=== PATIENT | female | born 1960 | race Caucasian/White ===

== ENCOUNTER 2024-12-01 19:13 | Inpatient (IN) | payer MEDICARE, MEDICAID ==
[~2024-12-01] VITALS: Ht 177.8 cm; Wt 97.0 kg
[2024-12-01] MEDS: normal saline 1000ML IV soln IVB ONE (19:33)
--- NOTE | 2024-12-01 19:58 | Physician Documentation ---
History of Present Illness ~ Chief Complaint: Urinary Symptoms Stated Complaint: NEPHRITIS Time Seen by MD: 19:20 Mode of Arrival: EMS, Stretcher HPI History, review of systems, physical examination are limited due to patient's developmental delay. This is a nonverbal autistic 64-year-old female transferred to us from the outside facility for higher level of care and neurology consultation. History is obtained from record review. It appears the patient had presented to the outside facility with the caregivers reporting that she is more weak than normal and had two falls in the last several days. HPI per Dr. David Tineo states this is a 64-year-old female with a history of autistic disorder, nearly nonverbal at baseline with a hypotension, hypothyroidism, and developmental delay. She has a lethargy and weakness over the last two days. She had two falls but reportedly no head strike. Not complaining of any known pain. It appears that the patient takes atorvastatin, benztropine, fluvoxamine, gabapentin, haloperidol, Invega Sustenna, levothyroxine 75 mcg, loratadine, melatonin, metformin, MiraLax and multivitamins. Laboratory studies at outside facility showed leukocytosis of 21.9, normal hemoglobin of 12.7, 88% neutrophils, normal platelets at 180. COVID and influenza were negative. Metabolic panel was notable for elevated BUN at 33, elevated creatinine at 1.44, normal electrolytes, normal bicarb. Troponin was negative. BNP was slightly elevated 196. Coagulation panel was unremarkable. Urinalysis is positive for UTI, bacteria present, leukocyte esterase the present, hematuria is also noted. Her lactic acid was elevated at 2.4, improved with fluids. TSH was normal at 1.24. Left hip x-ray was obtained and shows intact hip and pelvis. Right shoulder x- ray was obtained showing a intact right shoulder. Chest x-ray showed no acute cardiopulmonary disease. CT head showed more motion artifact but no acute intracranial process. CT of the chest, abdomen and pelvis was ordered and it found left-sided hydronephrosis, 3 mm stone. She received broad-spectrum antibiotic coverage. Because of the obstructive pyelonephritis she was transferred to our facility for urology consultation. Medication Reconciliation Allergies: Coded Allergies: No Known Allergies (Unverified , 12/01/24) Past Medical History Smoking Status: Never smoker Review of Systems ROS Limited as above Physical Exam Vital Signs: Temperature: 99.3, Heart Rate: 108, Respiratory Rate: 16, BP: 136/76, Pulse Oximetry: 94, Weight: 97.000 Oxygen Flow Rate: 0 Physical Exam GENERAL: Awake, baseline mentation, no apparent distress, non-toxic appearing, nonverbal, does not not follows commands appropriately. Examined in bed 3. HEENT: Atraumatic, normocephalic, pupils equal, extraocular muscles intact, sclerae anicteric, mucus membranes moist, oropharynx is clear, no stridor. NECK: supple, full active range of motion, trachea midline, no thyromegaly, no lymphadenopathy, no JVD. CARDIOVASCULAR: Tachycardic and regular rate/rhythm, no murmurs/gallops/rubs, Pulses are 2+ in all extremities and symmetric. Capillary refill less than 2 seconds. PULMONARY: Nonlabored, good air movement ,no respiratory distress, speaking in full sentences, clear to auscultation bilaterally, no wheezing, no ronchi, no rales, no accessory muscle use. GASTROINTESTINAL: Soft, non-tender, non-distended, normal active bowel sounds, no organomegaly, no pulsatile masses, left CVA tenderness. NEUROLOGIC: Lucid with baseline mental status. Normal facial symmetry. Moves all extremities symmetrically and with purpose. No truncal ataxia. Speech is fluid without evidence of dysarthria or aphasia, no focal deficits appreciated. MUSCULOSKELETAL: There is full range of motion of all extremities. There is no joint pain or joint swelling or joint erythema. There is no muscle pain or tenderness or swelling. EXTREMITIES: warm, well-perfused, no cyanosis, no clubbing, no edema, no acute deformities. Skin: warm, dry, no rashes or lesions, no jaundice, no petechiae orpurpura. No ecchymosis. PSYCHIATRIC: Unable to assess Progress Results/Orders Results/Orders Orders - AVERY HAIDER DO Cbc/Diff (12/01/24 19:21) ESR (12/01/24 19:21) C-Reactive Protein (12/01/24 19:21) Culture Blood (12/01/24 19:21) Urinalysis, Cult If Indicated (12/01/24 19:21) MG (12/01/24 19:21) Monitor (12/01/24 19:21) Saline Lock (12/01/24 19:21) CMP (12/01/24 19:21) Lacticsepsis (12/01/24 19:21) Straight Cath For Urine Sample (12/01/24 19:21) Procalcitonin (12/01/24 19:21) Completed Orders - AVERY HAIDER DO Normal Saline 1000ml (0.9% Sodium Chlori (12/01/24 19:25) Medications Received in ER Medications (Trade) Dose Ordered Sig/Inder Route PRN Reason Start Time Stop Time Status Last Admin Dose Admin (0.9% sodium chloride (NS) 1000ml IV soln) 1,000 ml ONCE ONCE IVB 12/01/24 19:25 12/01/24 19:26 DC 12/01/24 19:33 1,000 ML Vital Signs 12/01/24 12/01/24 12/01/24 19:15 19:19 19:20 Temp 99.3 Pulse 111 108 Resp 18 16 16 B/P (MAP) 136/76 136/76 (96) Pulse Ox 99 94 O2 Flow Rate 0 0 Medical Decision Making Findings Facility Status: ED Holds, RME process The plan was discussed with the patient, who demonstrates clear understanding of the plan and is in agreement with the plan unless otherwise noted in the chart. All questions have been answered, all concerns were addressed unless otherwise documented. I was available throughout their ED stay for frequent reassessment and questions. Differential Diagnoses (considered and possible or likely): [Urinary tract infection, pyelitis, pyelonephritis, kidney stone, obstructive uropathy, infected stone, dehydration, electrolyte derangement, sepsis] ??Differential Diagnoses (considered and unlikely, not requiring evaluation currently): [Traumatic etiology has been ruled out at the outside facility] MDM Data Please see HPI for the following: Independent Historians and external Records Review. Historian: Record review Independent Historians: ?[EMS] Medication Management: [Reviewed medication list] Social History and determinants: [Reviewed] Please see the body of the note for the following: Any independent interpretations of ECG, imaging studies. All vitals signs/haemodynamics, ordered tests were independently reviewed and interpreted by myself. Nursing triage complaint and vitals reviewed, additional nursing notes were reviewed as available and I agree unless otherwise noted or documented in contradiction in the chart Vital Signs: Independently reviewed Labs: Independently interpreted Imaging: Independently interpreted Old Medical Records: Independently reviewed, see HPI for relevant summary and information Pulse Oximetry: [96%] interpreted as [normal on room air] by me [Manufacture Specialist: Tachycardic Rate, Regular rhythm, no ectopy, sinus tachycardic. reviewed and interpreted by me] Additionally notably showing: [Persistently tachycardic despite fluids.] Tests considered but not ordered include: [Repeat imaging does not appear to be necessary] Social Determinants of Health Impact: Patient was evaluated in [facility] [place] to healthcare due to below par ratio of patient to medical providers. [] Comorbid Conditions Impacting Present Evaluation and Care/Treatment: [Severe autism] Management Discussions with other Healthcare Providers: [Hospitalist regarding admission] Treatment and Disposition Medication Management (Given or considered): [The patient already received antibiotics]. See EMR for details Consideration for Hospitalization/Escalation/Deescalation of Care: Admission for observation has been considered, appears to be necessary for further management of her infected stone ?ED Course:?[No clinical deterioration] ?Shared decision making:?[] Code status:?FULL Please see the full Electronic Medical Record for full details of nursing documentation, medications list, other records of complete past medical history and conditions, vital signs, laboratory studies, and any radiologic study interpretations by radiologists. Portions of this note were completed using [email or web address] dictation software and as a result there may exist minor errors in spelling. I have reviewed elements of past family and social history and agree as included in note. Departure Disposition: 09 ADMITTED INPATIENT Impression: Primary Impression: Acute pyelonephritis Additional Impressions: Obstruction of urinary tract Left renal stone Sepsis Condition: Stable Referrals: NO PRIMARY CARE PROVIDER (PCP) Education Educated: Other Educated regarding: diagnosis, treatment, prognosis Signature Scribe Signature: No scribe Attestation: Date: Dec 01, 2024 Time: 20:07 This note accurately reflects clinical decisions, work performed by myself, DO VITALY Miguel NICHOLAS M DO Dec 01, 2024 19:58
[2024-12-01 20:05] LABS: MEAN PLATELET VOLUME 7.7 FL (7.4-10.4); RED CELL DISTRIBUTION WIDTH 13.3 % (11.5-14.5)
[2024-12-01 20:23] LABS: CREATININE 1.44 MG/DL (0.40-0.90); TOTAL CARBON DIOXIDE 21.7 MMOL/L (24-32); eCRCL 43 ML/MIN; eGFR 37 ML/MIN
[2024-12-01] MEDS ORDERED: potassium Cl 20 mEq SR tablet PO PRN (21:05)
[2024-12-01] MEDS ORDERED: potassium Cl 40MEQ/1/2NS 520ml 520 ML IV PRN (21:05)
[2024-12-01] MEDS ORDERED: magnesium sulf-water 2g/50mL 50 ML IV PRN (21:05)
[2024-12-01] MEDS ORDERED: HYDROcodone/acetaminophen 5mg/325mg tablet PO PRN (21:05)
[2024-12-01] MEDS ORDERED: magnesium sulf-water 4G/100mL 100 ML IV PRN (21:05)
[2024-12-01] MEDS ORDERED: HYDROcodone/acetaminophen 10/325mg tab PO PRN (21:05)
[2024-12-01] MEDS ORDERED: mag hydrox/Alum hydrox/simeth 30ml oral suspension PO PRN (21:05)
[2024-12-01] MEDS ORDERED: morphine 4 MG/ML inj SYRINge IV PRN ×2 (21:05)
[2024-12-01] MEDS ORDERED: magnesium Cl slow-release 64mg tablet PO PRN (21:05)
[2024-12-01] MEDS ORDERED: ondansetron/PF 4mg/2ml inj IV PRN (21:05)
[2024-12-01] MEDS ORDERED: magnesium hydroxide 30ml (MOM) UD suspension PO PRN (21:05)
--- NOTE | 2024-12-01 21:12 | HISTORY AND PHYSICAL-Residence ---
History & Physical Providers to Resident Creating Document: DARNELL CRUZ RES ~ History of Present Illness Reason for Admit\Complaint: PYELONEPHRITIS History of Present Illness This is a nonverbal autistic 64-year-old female transferred from [facility] . Patient is nearly nonverbal at baseline with past medical history of hypertension, hypothyroidism, diabetes, hypercholesterolemia, depression, dementia, tremors, developmental delay. All the information that I got was from the caregiver and medical records from [facility]. According to the caregiver, patient had a ground level mechanical fall yesterday, was taken to the hospital where CT head, shoulder, pelvis hip showed no abnormalities or fractures. Left hip x-ray was obtained and shows intact hip and pelvis. Right shoulder x-ray was obtained showing a intact right shoulder. Patient's caregiver reports that she was having generalized weakness since yesterday and was complaining of back pain. She reports having no complaints of shortness of breath, chest pain, headache, nausea, vomiting, abdominal pain, burning micturition. CT scan abdomen showed nonobstructing right kidney lower pole calyceal stone measuring 3 mm. There is mild left hydronephrosis but there is no left kidney stone in the kidney. The left ureter distally shows a small stone measuring 3 mm at the ureterovesical junction. There is heterogeneous enhancement of the left kidney cortex suggesting pyelonephritis. Allergies: Coded Allergies: No Known Allergies (Unverified , 12/01/24) Past Medical History Past Medical History Autism Hypertension Diabetes mellitus type 2 Hyperlipidemia Depression Dementia Hypothyroidism Tremors Past Surgical History Surgical History Comment No significant surgical history as per the building code administrator. Past Social History Social History Comment As per the building code administrator the patient did not smoke not drink alcohol. Patient lives at home along with some assistance present 24 hours. Patient independent with most activities of daily living. Patient is nonverbal. PCP at [facility] purnima. ROS ROS Constitutional: Generalized weakness Eyes: No pain, erythema, discharge, blurring of vision ENT: No sore throat, epistaxis, tinnitus Cardiovascular:No chest pain, palpitations, syncope, lower extremity edema, paroxysmal nocturnal dyspnea Respiratory: No Shortness of breath and cough, No hemoptysis. Gastrointestinal: No nausea, vomiting. No Abdominal pain, constipation,diarrhea. Normal appetite. No hematemesis or melena. Genitourinary: No symptoms reported. Musculoskeletal: No Swelling, pain in bilateral lower legs. Integumentary: No change in skin, hair, nails. No swelling, bruising, abrasions Neurologic: No weakness,No headache, neck pain, numbness or tingling of the extremities, Endocrine: No fatigue, no weakness. polydipsia, polyuria, change in appetite, heat or cold intolerance, sweating, dry skin Hematological: No bleeding, petechiae, bruising Allergies: No asthma or urticaria Exam Vitals: Vital Signs Date Time Temp Pulse Resp B/P (MAP) Pulse Ox O2 Delivery O2 Flow Rate FiO2 12/01/24 19:20 16 12/01/24 19:19 108 94 0 12/01/24 19:15 99.3 General: Patient sleeping, not awake. HEENT: Atraumatic, normocephalic, EOMI, anicteric sclera ; pink conjunctiva Neck: Trachea midline. Supple, full range of motion, no JVD Cardiac: Regular rhythm, regular rate with no murmurs all over the precordium. Respiratory: Equal breath sounds bilaterally, no tachypnea, no wheezing ,rub or rales, Chest wall is symmetric and without deformity. Gastrointestinal: Abdomen symmetric, non-distended, soft, non-tender, normal bowel sounds x4 quadrant, normoactive, no hepatosplenomegaly Musculoskeletal: , No pedal edema, no cyanosis Neurological: Unable to perform examination. Skin: Warm and dry Diagnostic Data Last Recorded Lab Results: 12/02/24 0515 12/02/24 0515 Advance Care Planning Advanced Care plannin - 30 Minutes (Full code) Additional Plan Nonobstructing right kidney stone Hydronephrosis Sepsis due to underlying acute pyelonephritis Patient meeting SIRS criteria Pulse-111, WBC-21.5 Lactic acid elevated, CRP-elevated, ESR-elevated, procalcitonin normal Urinalysis from outside facility is positive for UTI, bacteria , leukocyte esterase , hematuria. CT scan at [facility] showed- nonobstructing right kidney lower pole calyceal stone measuring 3 mm. There is mild left hydronephrosis due to a 3mm calculus at the left ureterovesical junction . There is heterogeneous enhancement of the left kidney cortex suggesting pyelonephritis. Patient on fluids NS 100 cc/hour. Patient started on Zosyn. Urology consulted. Waiting recommendations. TIFFANY- Creatinine-1.44, BUN-28 Patient on fluids NS. Follow-up with urine lytes. Hypertension- Patient currently recording stable blood pressures. Continue home meds once med reconciliation is done. Diabetes mellitus- [id number]-5.2 Patient on hyperglycemia hypoglycemia protocol. Lantus 10 units, low-dose protocol. Hypothyroidism- Continue levothyroxine 75 mcg. Tremors- Continue Patient on benztropine 2 mg. Code status: Full code DVT prophylaxis: SubQ heparin Pain management: Morphine 1 mg/2 mg p.r.n. Diet/nutrition: Heart healthy diet Prognosis: Guarded Darnell Cruz PGY-1 Date of Service: Dec 01, 2024 Billing Provider: JOHNATHON PANIAGUA MD Addendum Attestation I agree with the residents assessment and plan as below: 64 year old female with autism admitted after a fall found to have a renal stone with hydronephrosis Plan: consult urology continue zosyn pain control CCT 50 min using HIPPA compliant A/V technology DARNELL CRUZ, RES Dec 01, 2024 21:12 JOHNATHON PANIAGUA MD Dec 02, 2024 19:47
[2024-12-01] MEDS: normal saline 1000ml 1,000 ML IV SCH (21:42)
[2024-12-01 22:00] VITALS: BP 122/68; PULSE 114; RESP 20; TEMP 100.6; O2SAT 96
[2024-12-01] MEDS ORDERED: glucagon, human recombinant 1mg kit SUBCUT PRN (22:25)
[2024-12-01] MEDS ORDERED: dextrose 50%-water 50ml dispensing syringe IV PRN ×2 (22:25)
[2024-12-01] MEDS ORDERED: DEXTROSE 15 GM of carb/4 tabs (each vial/BOTTLE has 4 tablets) PO PRN ×2 (22:25)
[2024-12-01] MEDS ORDERED: CHOL500050 PO (22:57)
[2024-12-01] MEDS ORDERED: ATOR40TA PO (22:58)
[2024-12-01] MEDS ORDERED: BENZ2TAB65 PO (22:59)
[2024-12-01] MEDS ORDERED: DONE-55 PO (23:00)
[2024-12-01] MEDS ORDERED: GABA-1405 PO (23:16)
[2024-12-01] MEDS ORDERED: LEVO75TA PO (23:20)
[2024-12-01] MEDS ORDERED: LISI10TA27 PO (23:21)
[2024-12-01] MEDS ORDERED: LORA10TA7 PO (23:23)
[2024-12-01] MEDS ORDERED: MELA3CAP2 PO (23:23)
[2024-12-01] MEDS ORDERED: METF-436 PO (23:24)
[2024-12-01] MEDS ORDERED: PROP40TA72 PO (23:36)
[2024-12-02] VITALS (8 sets, daily range): BP systolic 132–152; BP diastolic 63–93; PULSE 92–125; RESP 16–22; TEMP 97–102.6; O2SAT 95–98
[2024-12-02] MEDS: piperacillin/tazo 3.375gm/50ml 50 ML IV ONE (01:14)
[2024-12-02] MEDS: piperacillin/tazo 3.375gm/50ml 50 ML IV SCH (01:17)
[2024-12-02] MEDS ORDERED: TOPI200T68 PO (03:52)
[2024-12-02] MEDS ORDERED: TRAZ150T78 PO (03:54)
[2024-12-02] MEDS ORDERED: VENL150C58 PO (03:54)
[2024-12-02 06:13] LABS: MEAN PLATELET VOLUME 8.2 FL (7.4-10.4); RED CELL DISTRIBUTION WIDTH 13.3 % (11.5-14.5)
[2024-12-02 06:27] LABS: CREATININE 1.30 MG/DL (0.40-0.90); TOTAL CARBON DIOXIDE 21.2 MMOL/L (24-32); eCRCL 48 ML/MIN; eGFR 41 ML/MIN
[2024-12-02 06:28] LABS: CHOL/HDL RATIO 2.1 (0.00-4.99); LDL CHOLESTEROL 44 MG/DL (50-100)
[2024-12-02] MEDS: INSULIN LISPRO 100 UNIT/ML INSULN.PEN MULTI-DOSE SQ SCH (07:00)
[2024-12-02] MEDS: K and/or MAG REPLACEMENT MC SCH (08:00)
[2024-12-02] MEDS: heparin, porcine 5000 units/ml vial SQ SCH (08:24)
[2024-12-02] MEDS: docusate sod 100mg capsule PO SCH (08:24)
[2024-12-02] MEDS: benztropine 1mg tablet PO SCH (08:24)
[2024-12-02] MEDS: nystatin 500,000 unit/5ML UD oral suspension PO SCH (08:27)
[2024-12-02] MEDS ORDERED: FLUO20CA41 PO (12:57)
[2024-12-02] MEDS ORDERED: HALO5TAB PO (12:57)
[2024-12-02] MEDS ORDERED: METF-1203 PO (12:57)
[2024-12-02] MEDS ORDERED: METF-438 PO (12:57)
[2024-12-02] MEDS ORDERED: benztropine 1mg tablet PO SCH (20:00)
--- NOTE | 2024-12-02 20:07 | PROGRESS NOTE ---
Daily Progress Note Providers to CC ~ Antibiotic Timeout Antibiotic Ordered?: Yes Subjective Patient was seen in presence of earlier with caregiver and then later by herself in room. Patient was in restraints when I evaluated her. Patient is able to communicate little bit verbally, looks comfortable. As per nursing staff patient stood up with support. Objective Vital Signs Date Time Temp Pulse Resp B/P (MAP) Pulse Ox O2 Delivery O2 Flow Rate FiO2 12/02/24 18:00 100.4 121 16 152/93 (112) 98 Room Air 12/01/24 21:46 0 Result Diagram: 12/02/2451412/02/24514 General-patient not in any acute distress, awake chronically ill-appearing, looks comfortable HEENT-atraumatic normocephalic, neck supple without elevated JVD, No lymphadenopathy bilaterally. Eyes-no icterus or pallor seen in eyes Chest-clear to auscultation bilaterally, breathing nonlabored no tachypnea, no wheezing, no crepitation, no crackles. Heart-S1-S2 normal, regular heart rate no murmur Abdomen bowel sounds positive on auscultation, soft nondistended nontender no guarding, no rigidity Skin no active skin rash Neurology- awake cooperated during physical exam Extremity- no pedal edema able to move all 4 extremities Problem\Assessment\Plan Nonobstructing right kidney stone Hydronephrosis Sepsis due to underlying acute pyelonephritis Patient meeting SIRS criteria Pulse-111, WBC-21.5 Lactic acid elevated, CRP-elevated, ESR-elevated, procalcitonin normal Urinalysis from outside facility is positive for UTI, bacteria , leukocyte esterase , hematuria. CT scan at [facility] showed- nonobstructing right kidney lower pole calyceal stone measuring 3 mm. There is mild left hydronephrosis due to a 3mm calculus at the left ureterovesical junction . There is heterogeneous enhancement of the left kidney cortex suggesting pyelonephritis. Patient on fluids NS 100 cc/hour. Patient on Zosyn. Urology consulted by admitting provider. Waiting recommendations. TIFFANY-improved Creatinine-1.44, BUN-28 Patient on fluids NS. will Follow-up with urine lytes. Hypertension- Patient currently recording stable blood pressures. Continue home meds once med reconciliation is done. Diabetes mellitus- [id number]-2.2 Patient on hyperglycemia hypoglycemia protocol. stopped Lantus 10 units, continue low-dose protocol. Hypothyroidism- Continue levothyroxine 75 mcg. Tremors- Continue Patient on benztropine 2 mg. Code status: Full code DVT prophylaxis: SubQ heparin Pain management: Morphine 1 mg/2 mg p.r.n. Diet/nutrition: Heart healthy diet Patient's current condition is guarded we will continue to follow patient in AM Date of Service: Dec 02, 2024 Billing Provider: GISEL KIMBROUGH MD Common Visit Codes: [id number] INP/OBS CARE(HIGH) GISEL KIMBROUGH MD Dec 02, 2024 20:07
[2024-12-02] MEDS: donepezil 5mg tablet PO SCH (20:49)
[2024-12-02] MEDS: propranolol 10mg tablet PO SCH (20:50)
[2024-12-02] MEDS ORDERED: insulin glargine (Lantus) pen - multi-dose SQ SCH (21:00)
[2024-12-03 00:35] VITALS: TEMP 101.5
[2024-12-03 02:41] VITALS: TEMP 98.3
[2024-12-03 06:45] LABS: MEAN PLATELET VOLUME 8.5 FL (7.4-10.4); RED CELL DISTRIBUTION WIDTH 13.3 % (11.5-14.5)
[2024-12-03 06:56] VITALS: BP 141/81; PULSE 65; RESP 16; TEMP 98.3; O2SAT 100
[2024-12-03 07:05] LABS: CREATININE 1.12 MG/DL (0.40-0.90); TOTAL CARBON DIOXIDE 19.2 MMOL/L (24-32); eCRCL 56 ML/MIN; eGFR 49 ML/MIN
[2024-12-03] MEDS ORDERED: lactose-reduced food (Ensure Enlive) - 237ml bottle PO SCH (07:30)
[2024-12-03] MEDS: potassium Cl 20 mEq SR tablet PO PRN (10:25)
[2024-12-03] MEDS: venlafaxine XR 75mg capsule (Q24H) PO SCH (10:26)
[2024-12-03] MEDS: levoTHYROXINE 75mcg tablet PO SCH (10:26)
[2024-12-03 11:22] VITALS: BP 145/87; PULSE 68; RESP 16; TEMP 97.8; O2SAT 98
[2024-12-03] MEDS ORDERED: CIPR-259 PO (12:49)
[2024-12-03] MEDS: ciprofloxacin 250mg tablet PO ONE (13:17)
--- NOTE | 2024-12-03 18:24 | DISCHARGE SUMMARY ---
Discharge Summary Providers to CC ~ Discharge Summary Admission Diagnosis: RENAL STONE Hospital Course DATE OF ADMISSION: December 01, 2024 DATE OF DISCHARGE: December 03, 2024 CBC testing done on December 03, 2024 WBC 13.7 hemoglobin 11.0 hematocrit 32.8 sed rate 77 platelet count 140. Serum chemistry done on December 03, 2024 sodium 140 potassium 3.4 creatinine 1.12 GFR 49, hemoglobin A1c 6.2, normal liver enzymes procalcitonin 0.40, normal lipid panel . Blood culture showed no growth after one day Discharge Diagnosis\Comment: Nonobstructing right kidney stone Hydronephrosis Sepsis due to underlying acute pyelonephritis TIFFANY-improved Hypertension, stable Diabetes mellitus, controlled [id number]-9.2 Hypothyroidism Tremors Operations\Procedures: None Consultants: None Complications: None Condition on DC: Stable New Medications: Ciprofloxacin HCl (Cipro) 500 Mg Tablet 1 TAB PO Q12H for 7 Days, #14 TAB Continued Medications: Atorvastatin Calcium* (Lipitor*) 40 Mg Tablet 1 TAB PO DAILY for 30 Days, #30 TAB Benztropine Mesylate (Benztropine Mesylate) 2 Mg Tablet 1 TAB PO Q12H for 30 Days, #60 TAB Cholecalciferol (Vitamin D3) (Vitamin D3) 125 Mcg (5000 Unit) Capsule 1 CAP PO DAILY for GENERAL HEALTH for 30 Days, #30 CAP 0 Refills Donepezil Hcl (Donepezil Hcl) 10 Mg Tab.rapdis 10 MG PO HS, TAB Fluoxetine Hcl* (Prozac*) 20 Mg Capsule 5 CAP PO HS, CAP Gabapentin (Gabapentin) 600 Mg Tablet 1 TAB PO BID for 30 Days, #90 TAB 0 Refills Haloperidol (Haloperidol) 5 Mg Tablet 1 TAB PO Q12H for 30 Days, #60 TAB 0 Refills Levothyroxine Sodium* (Synthroid*) 75 Mcg Tablet 1 TAB PO DAILY for 30 Days, #30 TAB Takes @ 1500 Lisinopril (Lisinopril) 10 Mg Tablet 10 MG PO DAILY, #30 TAB Melatonin (Melatonin) 3 Mg Capsule 1 CAP PO HS for 30 Days, #30 CAP 0 Refills Metformin HCl (Metformin HCl) 500 Mg Tablet 1 TAB PO DAILY for 30 Days, #60 TAB Takes With Dinner Propranolol Hcl* (Inderal*) 40 Mg Tablet 1 TAB PO Q12H for 30 Days, #60 TAB Topiramate (Topiramate) 200 Mg Tablet 1 TAB PO BID Trazodone Hcl (Trazodone Hcl) 150 Mg Tablet 1 TAB PO HS Venlafaxine Hcl (Venlafaxine Hcl Er) 150 Mg Cap.sr.24h 1 CAP PO DAILY Discontinued Medications: Loratadine (Loratadine) 10 Mg Tablet 10 MG PO DAILY, #30 TAB Metformin HCl (Metformin HCl) 1,000 Mg Tablet 1 TAB PO DAILY for 30 Days, #60 TAB 0 Refills Discharge Summary: Nonobstructing right kidney stone Hydronephrosis Sepsis due to underlying acute pyelonephritis Patient meeting SIRS criteria Pulse-111, WBC-21.5 Lactic acid elevated, CRP-elevated, ESR-elevated, procalcitonin normal Urinalysis from outside facility is positive for UTI, bacteria , leukocyte esterase , hematuria. CT scan at [facility] showed- nonobstructing right kidney lower pole calyceal stone measuring 3 mm. There is mild left hydronephrosis due to a 3mm calculus at the left ureterovesical junction . There is heterogeneous enhancement of the left kidney cortex suggesting pyelonephritis. Patient on fluids NS 100 cc/hour. Patient on Zosyn. Urology consulted by admitting provider. pending recommendations. TIFFANY-improved Creatinine-1.44, BUN-28 Patient on fluids NS. will Follow-up with urine lytes. Hypertension- Patient currently recording stable blood pressures. Continue home meds once med reconciliation is done. Diabetes mellitus- KbG5l-8.2 Patient on hyperglycemia hypoglycemia protocol. stopped Lantus 10 units, continue low-dose protocol. Hypothyroidism- Continue levothyroxine 75 mcg. Tremors- Continue Patient on benztropine 2 mg. Patient is feeling better she has been afebrile and getting discharged home with caregiver in stable condition. Patient is seen and examined on the day of discharge. All labs, diagnostic workup and discharge plan discussed with patie nts caregiver in detail before her discharge. All questions and queries answered to the best of my professional medical knowledge. I heard patient's concerns and address appropriately. Patient was cleared by Physical therapy team for home discharge with the assistance . junior project manager involved in patient's discharge plan. Discharge instructions provided to the patient. Please follow- up with PCP, UROLOGY SPECIALIST in outpatient setting in 1-2 weeks. Increase oral fluid around 1500 mL per day. Please read the side effects of all your medication and discussed with PCP or provider's prescribing those medications to you. Activity as tolerated, provide fall precaution documents. General-patient not in any acute distress, awake chronically ill-appearing, looks comfortable HEENT-atraumatic normocephalic, neck supple without elevated JVD, No lymphadenopathy bilaterally. Eyes-no icterus or pallor seen in eyes Chest-clear to auscultation bilaterally, breathing nonlabored no tachypnea, no wheezing, no crepitation, no crackles. Heart-S1-S2 normal, regular heart rate no murmur Abdomen bowel sounds positive on auscultation, soft nondistended , no CVA tenderness, subjective discomfort over lower belly on palpation, no guarding, no rigidity Skin no active skin rash Neurology- awake cooperated during physical exam Extremity- no pedal edema able to move all 4 extremities *Problems/Diagnosis: (1) Acute pyelonephritis Status: Acute Total Time Spent on D/C: > 30 Minutes Date of Service: Dec 03, 2024 Billing Provider: IGSEL KIMBROUGH MD Common Visit Codes: 07456-ZDS/OBS DISCH DAY >30min GISEL KIMBROUGH MD Dec 03, 2024 18:24
[2024-12-04] MEDS ORDERED: CefTRIAXone 2gm/D5W 50ml BAG 50 ML IV SCH (08:00)
== END 2024-12-03 14:26 | disposition home or self-care (01) | DRG 871 ==
LOC: ER 19:15 → ED HOLD 20:36 → EDBEDREQ 21:00 → SUR 3N 22:10
PROVIDERS: ADMIT Internal Medicine; ATTEND Internal Medicine
DX: A41.9 Sepsis, unspecified organism (principal); N17.0 Acute kidney failure with tubular necrosis; F84.0 Autistic disorder; N13.6 Pyonephrosis; F03.918 Unspecified dementia, unspecified severity, with other behavioral disturbance; E03.9 Hypothyroidism, unspecified; I10 Essential (primary) hypertension; E11.9 Type 2 diabetes mellitus without complications; R25.1 Tremor, unspecified; E78.00 Pure hypercholesterolemia, unspecified; F32.A Depression, unspecified; Z79.899 Other long term (current) drug therapy; Z78.1 Physical restraint status; Z79.84 Long term (current) use of oral hypoglycemic drugs
CPT/HCPCS: 36415; 80053; 80061; 82948; 83036; 83605; 83735; 84145; 85025; 85651; 86140; 87040; 96360; 97110; 97116; 97162; 99285; A6258; G0378; J1644; J1815; J2543; J7030